=== PATIENT | male | born 1985 | race Caucasian/White ===

== ENCOUNTER 2021-05-19 16:40 | Inpatient (IN) | payer OTHER, BC ==
[~2021-05-19] VITALS: Ht 170.2 cm; Wt 73.9 kg
[2021-05-19 16:49] VITALS: BP 138/88
[2021-05-19 17:38] LABS: ABSOLUTE NEUTROPHILS 5.3 thou/uL (1.4-8.2); EOSINOPHILS 1.5 % (0.0-3.0); HEMATOCRIT 42.3 % (42.0-52.0); HEMOGLOBIN 14.8 gm/dL (14.0-18.0); LYMPHOCYTES 22.4 % (24.0-44.0); MCH 32.8 pg (26.0-34.0); MCHC 34.9 g/dL (28.0-37.0); MCV 93.9 fL (80.0-100.0); MONOCYTES 9.3 % (1.0-8.0); PLATELET COUNT 288 thou/uL (150-400); POLYS 65.8 % (36.0-66.0); RDW 12.7 % (10.5-14.5)
[2021-05-19 17:46] LABS: CALCIUM 8.6 mg/dL (8.5-10.1); CREATININE 0.9 mg/dL (0.7-1.3); POTASSIUM 3.9 mmol/L (3.5-5.1)
[2021-05-19 17:52] LABS: ALBUMIN 3.5 g/dL (3.4-5.0); TOTAL BILIRUBIN 0.8 mg/dL (0.2-1.0); TOTAL PROTEIN 7.3 g/dL (6.4-8.2)
[2021-05-19 23:59] VITALS: BP 129/74
[2021-05-20 00:01] VITALS: BP 158/94
--- NOTE | 2021-05-20 04:55 | NUR ---
PT ARRIVED TO UNIT APPROX 0001, PT ORIENTED TO ROOM, CONSENTS OBTAINED, ADMISSION PACKET PROVIDED. PT AOX4. PT REPORTS 7/10 PAIN IN LUE, WORSE WITH MOVEMENT AND TACTILE STIMULATION. SLING/SPLINT TO LUE REMAINS IN PLACE. PT RECEIVING PRN IV FENTANYL Q2HR. PT DENIES SOB WHILE ON ROOM AIR. PT NPO AT MIDNIGHT. PT WITHOUT NAUSEA OR EMESIS. PT AMBULATING INDEPENDENTLY TO BATHROOM, BEDSIDE URINAL PROVIDED. PT RESTING IN BED THROUGHOUT SHIFT, FREQUENT REPOSITIONING ENCOURAGED, PT NOTED TO SHIFT INDEPENDENTLY. PT REPORTS NUMBNESS AND TINGLING IN LUE. CAPILLARY REFILL LESS THAN 3SEC, PERIPHERAL PULSES PALPABLE IN ALL EXTREMITIES. PT ENCOURAGED TO NOTIFY STAFF FOR ALL NEEDS, CALL LIGHT WITHIN REACH, BED LOCKED IN LOWEST POSITION, FREQUENT MONITORING WILL CONTINUE.
[2021-05-20 08:12] VITALS: BP 136/88
[2021-05-20] MEDS ORDERED: PERCOCET 10-321 EAC1 PO (08:22)
[2021-05-20 13:11] LABS: INR 0.96; PROTIME 10.5 Seconds (10.5-12.1)
[2021-05-20 15:12] VITALS: BP 136/88
--- NOTE | 2021-05-20 15:30 | NUR ---
PT ASSESSED AT START OF SHIFT. NPO FOR POSSIBLE OR. DR. SRINIVASAN IN EARLY TO SEE PT AND NO SURGERY NECESSARY. PT TRIALED ON PO MEDS AND WAS DISCHARGED AT THIS TIME AND WILL SEE ON SATURDAY FOR DIFFERENT BRACE FOR ARM.
[2021-05-22 01:06] LABS: HAV IgM AB (ANTI-HAV IgM) Negative (Negative); HEPATITIS B SURFACE AG Negative (Negative)
--- NOTE | 2021-05-22 07:27 | EKG ---
[address] [place] [address] ELECTROCARDIOGRAM REPORT Name: VIJI MONTELONGO Room #: 437-P [facility] IN M.R.#: [id number] Admission: 05/19/21 Attend Phys: Epi Coreas, Discharge: 05/20/21 Date of : 89 Report #: [id number] [facility] ED Test Date: 2021-05-19 Test Time: 17:19:53 Pat Name: VIJI MONTELONGO Department: Room: [facility] Gender: M [employer] F[employer] Installer: larisa : 1985 Requested By: Suraj Robles Order Number: [id number] MD: Luis Anglin Measurements Intervals [place] Rate: 73 P: 49 UT: 135 QRS: 71 QRSD: 85 T: 55 QT: 405 QTc: 447 Interpretive Statements Sinus rhythm Low voltage, precordial leads No previous ECG available for comparison Electronically Signed On 05-22-2021 7:27:27 CDT by Luis Anglin [email or web address] <ELECTRONICALLY SIGNED> By: Luis Anglin MD, [facility] 05/22/21 0727 1719 1719 Luis Anglin MD, FACC /EPI
== END 2021-05-20 15:31 | disposition home or self-care (01) | DRG 563 ==
LOC: ER 16:40 → EROBS 22:47 → 4S 05-20 00:01
PROVIDERS: Internal Medicine; Physician Assistant; ADMIT Surgery; ATTEND Surgery
DX: S42.302A Unspecified fracture of shaft of humerus, left arm, initial encounter for closed fracture (principal); Z20.822 Contact with and (suspected) exposure to COVID-19; R74.01 Elevation of levels of liver transaminase levels; R73.9 Hyperglycemia, unspecified; F17.210 Nicotine dependence, cigarettes, uncomplicated; F12.90 Cannabis use, unspecified, uncomplicated; M10.9 Gout, unspecified; V89.2XXA Person injured in unspecified motor-vehicle accident, traffic, initial encounter; Y93.89 Activity, other specified; Y92.89 Other specified places as the place of occurrence of the external cause; Y99.8 Other external cause status